=== PATIENT | female | born 1960 | race Caucasian/White ===

== ENCOUNTER 2016-12-13 02:56 | Emergency (ER) | payer MEDICARE ==
--- NOTE | ~2016-12-13 | EKG ---
PATIENT: MONSE SINGH UNIT #: [id number] Ventricular Rate: 84 BPM Atrial Rate: 84 BPM QRS Duration: 112 ms Q-T Interval: 422 ms QTC Calculation(Bezet): 498 ms Calculated R [place]: -71 degrees Calculated T [place]: 100 degrees Diagnosis Line: Accelerated Junctional rhythm with retrograde Diagnosis Line: conduction Diagnosis Line: Left anterior fascicular block Diagnosis Line: Cannot rule out Inferior infarct (masked by Diagnosis Line: fascicular block?) , age undetermined Diagnosis Line: Anterolateral infarct , age undetermined T wave Diagnosis Line: abnormality, consider anterolateral ischemia Diagnosis Line: Abnormal ECG Diagnosis Line: No previous ECGs available Diagnosis Line: Confirmed by ANAMARIA MATTSON MD ([id number]) on 12/13/2016 Diagnosis Line: 4:11:12 PM INTERPRETING MD: TWILA ROSA
--- NOTE | ~2016-12-13 | CR72 ---
[facility] A Service of [facility] RADIOLOGY TEXT RESULTS PATIENT: MONSE SINGH LOCATION: [facility] : 58 UNIT #: [id number] AGE: [address]: Ginny Kwan APRN SEX: F ORDER DR: [id number] [facility] [address] [place], [place] [address] [id number] E MR#: [id number] Acc #: [id number] NAME: MONSE SINGH : 1960 SEX: F STUDY DATE/TIME: 12/13/2016 2:40 UNIT: [facility] ROOM: STUDY DESCRIPTION: CR Chest Single View Portable Attending Physician: Ginny Kwan A.P.R.N. Ordering Physician: Ginny Kwan A.P.R.N. Primary Care Physician: Mello Dao MEDICAL IMAGING REPORT This report is preliminary unless electronic signature is present EXAM Portable chest HISTORY Irregular heartbeat, chest pain, shortness of air onset yesterday. COMPARISON 05/19/2016 FINDINGS Portable view of the chest demonstrates a cardiomegaly without failure. Evidence of diffuse lung disease with a fine reticulonodular pattern suggesting underlying interstitial disease and fibrosis. No acute airspace disease or consolidation. No effusions. Mediastinal calcifications suggest old granulomatous disease. No pneumothorax. Dictated by... [place] Christina M.D. THIS IS AN ELECTRONICALLY VERIFIED REPORT [place] Christina M.D. at 12/13/2016 5:56 AM RACHEL/kourtney TD: 12/13/2016 04:33 JOB #: [id number] MEDICAL IMAGING REPORT Page 1 of 1 COPY
[2016-12-13 02:33] LABS: BASOPHIL% 0.6 % (0-2.5); EOSINOPHIL# 0.2 X10e3 (0-0.7); HEMATOCRIT 35.4 % (35.0-45.0); HEMOGLOBIN 11.3 gm/dL (12.0-16.0); LYMPHOCYTE# 0.3 X10e3 (1.0-3.5); LYMPHOCYTE% 6.2 % (17.0-45.0); MEAN CELL VOLUME 90.5 FL (83-96); MEAN CORPUSCULAR HEMOGLOBIN 28.9 PG (28-34); MEAN PLATELET VOLUME 8.6 FL (6.5-11.5); MONOCYTE# 0.4 X10e3 (0-1.0); NEUTROPHIL# 4.2 X10e3 (1.5-7.1); NEUTROPHIL% 82.2 % (40-75); PLATELET COUNT 212 X10e3 (140-420); RED BLOOD COUNT 3.91 X10e (3.90-5.30); RED CELL DISTRIBUTION WIDTH 15.8 % (11.0-15.5); WHITE BLOOD COUNT 5.1 X10e3 (4.0-10.5)
[2016-12-13 02:34] LABS: DIFF IND NO
[2016-12-13 02:55] LABS: INR 1.1; PARTIAL THROMBOPLASTIN TIME 24.4 SECONDS (23.5-31.3); PROTHROMBIN TIME (PATIENT) 11.5 SECONDS (9.6-11.5)
[~2016-12-13 02:56] MED LIST: ALENDRONATE SOD70 MG PO; ASPIRIN EC81 M1 PO; ASPIRIN PO; ASPIRIN81 MG PO; ATORVASTATIN CA80 MG PO; BACTRIM DS TABL1 TA2 PO; BAYER ASPIRIN325 M1 PO; BAYER CHEWABLE81 MG PO; BP MED; BUMEX2 MG PO; BYSTOLIC10 MG PO; CALCIUM CARBON600 M1 PO; CATAPRES-TTS-20.2 M1 PO; CERTAGEN PO; CLONIDINE PO; DILTIAZEM 24HR240 MG PO; EFFEXOR75 M2 PO; FEOSOL PO; HUMALOG100 U/ML SUBQ; HYDRALAZINE HC100 MG PO; HYDRALAZINE HCL50 MG PO; INSULIN SUBQ; IRON325 ( 651 PO; IRON325 ( 652 PO; ISOSORBIDE DINI30 MG PO; LANTUS100 U/ML SQ; LANTUS100 U/ML SUBQ; LASIX PO; LEVAQUIN PO; LEXAPRO PO; LIPITOR PO; LIPITOR80 MG PO; LISINOPRIL PO; LISINOPRIL5 MG PO; LOPRESSOR PO; LORTAB 10-5001 EACH PO; LORTAB 5-325 M1 EACH PO; LOSARTAN POTASS50 MG PO; METFORMIN PO; MINOXIDIL2.5 MG PO; MULTI VITAMIN1 EACH PO; MULTI-DAY1 TAB PO; NORVASC PO; NOVOLOG100 U/M2 SUBQ; NOVOLOG100 U/ML SUBQ; PLAVIX PO; TRAZODONE HCL150 MG PO; TRIAMTERENE-HC1 EACH PO; VISTARIL50 MG PO; VITAMIN D; ZYVOX PO; [UNRECOGNIZED DRUG - OTHER]; [UNRECOGNIZED DRUG - OTHER] PO
[2016-12-13 03:01] LABS: ALBUMIN SERUM 3.5 g/dL (3.5-5.0); BILIRUBIN, DIRECT 0.1 mg/dL (0.0-0.2); BILIRUBIN,INDIRECT 0.3 mg/dL (0.0-0.9); BILIRUBIN,TOTAL 0.4 mg/dL (0.2-2.0); BUN/CREATININE RATIO 7.14; CALCIUM SERUM 9.1 mg/dL (8.4-10.2); CREATININE SERUM 2.1 mg/dL (0.6-1.4); GLOM FILT RATE Estimated 25.5 mL/min (>60); POTASSIUM 3.4 mmol/L (3.5-5.1); PROTEIN TOTAL SERUM 6.7 g/dL (6.0-8.3)
[2016-12-13 03:56] LABS: POC - CKMB <1.0 ng/mL (0.0-7.9); POC - TROPONIN <0.05 ng/mL (<=0.05)
[2016-12-13 04:22] LABS: POC - CKMB <1.0 ng/mL (0.0-7.9); POC - TROPONIN <0.05 ng/mL (<=0.05)
== END 2016-12-13 04:56 | disposition home or self-care (01) ==
LOC: CED 02:56
PROVIDERS: Nurse Practitioner
DX: R00.2 Palpitations (principal); I12.0 Hypertensive chronic kidney disease with stage 5 chronic kidney disease or end stage renal disease; E11.22 Type 2 diabetes mellitus with diabetic chronic kidney disease; N18.6 End stage renal disease; E78.5 Hyperlipidemia, unspecified; Z99.2 Dependence on renal dialysis; Z95.5 Presence of coronary angioplasty implant and graft; E66.9 Obesity, unspecified; Z68.42 Body mass index [BMI] 45.0-49.9, adult; Z88.8 Allergy status to other drugs, medicaments and biological substances; Z79.899 Other long term (current) drug therapy; Z79.82 Long term (current) use of aspirin; Z79.4 Long term (current) use of insulin
CPT/HCPCS: 36415; 71010; 80048; 80076; 82150; 82553; 83690; 83735; 83880; 84484; 85025; 85610; 85730; 93005; 99283

== ENCOUNTER 2017-02-07 09:46 | Emergency (ER) | payer MEDICARE | END 2017-02-07 11:32 | disposition left against medical advice (07) | LOC: CED 09:46 | DX: Z53.21 Procedure and treatment not carried out due to patient leaving prior to being seen by health care provider (principal) ==

== ENCOUNTER 2017-02-15 19:54 | Emergency (ER) | payer MEDICARE ==
--- NOTE | ~2017-02-15 | CR211 ---
[facility] A Service of [facility] RADIOLOGY TEXT RESULTS PATIENT: MONSE SINGH LOCATION: [facility] : 58 UNIT #: [id number] AGE: [address]: Oliver Boyd MD SEX: F ORDER DR: [id number] [facility] [address] [place], [place] [address] [id number] E MR#: [id number] Acc #: [id number] NAME: MONSE SINGH : 1960 SEX: F STUDY DATE/TIME: 02/15/2017 22:45 UNIT: [facility] ROOM: STUDY DESCRIPTION: CR Ribs Uni 2 View W PA Ch Rt Attending Physician: Oliver Boyd M.D. Ordering Physician: Oliver Boyd M.D. Primary Care Physician: Mello Dao MEDICAL IMAGING REPORT This report is preliminary unless electronic signature is present EXAM Right rib series with PA chest HISTORY Shortness of air with activity, painful breathing since 02/14/17. The patient from bed on that day. FINDINGS A PA view of the chest and oblique views of the right ribs were obtained. The study is limited by patient's size. No rib fractures are visible. The heart size is normal and the lungs are clear. IMPRESSION 1. The study is limited by patient's size. There is no active disease and no rib fractures are visible. Dictated by... Veto Giles M.D. THIS IS AN ELECTRONICALLY VERIFIED REPORT Veto Giles M.D. at 02/16/2017 1:43 PM GARRISON/saturnino TD: 02/16/2017 12:57 JOB #: [id number] MEDICAL IMAGING REPORT Page 1 of 1 COPY
== END 2017-02-16 00:03 | disposition home or self-care (01) ==
LOC: CED 19:54
DX: S20.211A Contusion of right front wall of thorax, initial encounter (principal); I50.9 Heart failure, unspecified; N18.9 Chronic kidney disease, unspecified; I25.10 Atherosclerotic heart disease of native coronary artery without angina pectoris; E11.9 Type 2 diabetes mellitus without complications; Z79.899 Other long term (current) drug therapy; Z88.8 Allergy status to other drugs, medicaments and biological substances; Z79.4 Long term (current) use of insulin; W06.XXXA Fall from bed, initial encounter
CPT/HCPCS: 71101; 99284

== ENCOUNTER 2017-02-28 22:30 | Emergency (ER) | payer MEDICARE ==
[~2017-02-28] VITALS: Ht 160 cm; Wt 120.2 kg
--- NOTE | ~2017-02-28 | EKG ---
PATIENT: MONSE SINGH UNIT #: [id number] Ventricular Rate: 86 BPM Atrial Rate: 44 BPM QRS Duration: 120 ms Q-T Interval: 430 ms QTC Calculation(Bezet): 514 ms Calculated R [place]: -54 degrees Calculated T [place]: 100 degrees Diagnosis Line: Wide QRS rhythm Accelerated Junctional rhythm Diagnosis Line: Right bundle branch block Diagnosis Line: Left anterior fascicular block Diagnosis Line: Bifascicular block Diagnosis Line: Cannot rule out Inferior infarct (masked by Diagnosis Line: fascicular block?) , age undetermined Diagnosis Line: Possible Anterolateral infarct , age undetermined Diagnosis Line: Abnormal ECG Diagnosis Line: Diagnosis Line: Confirmed by RAYNA ALVARADO MD ([id number]) on Diagnosis Line: 03/02/2017 5:02:43 PM INTERPRETING MD: JENNY ROSA
[2017-03-01 01:06] LABS: BASOPHIL% 0.7 % (0-2.5); EOSINOPHIL# 0.1 X10e3 (0-0.7); EOSINOPHIL% 2.4 % (0.0-7.0); HEMATOCRIT 35.9 % (35.0-45.0); HEMOGLOBIN 11.5 gm/dL (12.0-16.0); LYMPHOCYTE# 0.3 X10e3 (1.0-3.5); MEAN CELL VOLUME 92.2 FL (83-96); MEAN CORPUSCULAR HEMOGLOBIN 29.6 PG (28-34); MEAN CORPUSCULAR HGB CONC 32.1 g/dL (30-36); MEAN PLATELET VOLUME 8.3 FL (6.5-11.5); MONOCYTE# 0.3 X10e3 (0-1.0); MONOCYTE% 7.1 % (3.0-12.0); NEUTROPHIL# 3.9 X10e3 (1.5-7.1); NEUTROPHIL% 82.8 % (40-75); PLATELET COUNT 302 X10e3 (140-420); RED BLOOD COUNT 3.89 X10e (3.90-5.30); RED CELL DISTRIBUTION WIDTH 18.1 % (11.0-15.5); WHITE BLOOD COUNT 4.8 X10e3 (4.0-10.5)
[2017-03-01 01:12] LABS: DIFF IND NO
[2017-03-01 01:27] LABS: ALBUMIN SERUM 3.6 g/dL (3.5-5.0); BILIRUBIN, DIRECT 0.2 mg/dL (0.0-0.2); BILIRUBIN,INDIRECT 0.7 mg/dL (0.0-0.9); BILIRUBIN,TOTAL 0.9 mg/dL (0.2-2.0); BUN/CREATININE RATIO 8.92; CALCIUM SERUM 8.8 mg/dL (8.4-10.2); CREATININE SERUM 2.8 mg/dL (0.6-1.4); PROTEIN TOTAL SERUM 7.1 g/dL (6.0-8.3)
[2017-03-01 01:29] LABS: POTASSIUM 2.6 mmol/L (3.5-5.1)
[2017-03-01 03:02] LABS: POC - CKMB 1.6 ng/mL (0.0-7.9); POC - TROPONIN <0.05 ng/mL (<=0.05)
== END 2017-03-01 04:10 | disposition home or self-care (01) ==
LOC: CED 22:30
PROVIDERS: Physician Assistant
DX: K21.9 Gastro-esophageal reflux disease without esophagitis (principal); I50.9 Heart failure, unspecified; N18.6 End stage renal disease; Z88.8 Allergy status to other drugs, medicaments and biological substances
CPT/HCPCS: 36415; 80048; 80076; 82150; 82553; 83690; 83735; 84484; 85025; 93005; 96374; 99284; J2405

== ENCOUNTER 2017-03-28 07:14 | Emergency (ER) | payer MEDICARE ==
[~2017-03-28] VITALS: Ht 160 cm; Wt 120.2 kg
--- NOTE | ~2017-03-28 | CR252 ---
[facility] A Service of [facility] RADIOLOGY TEXT RESULTS PATIENT: MONSE SINGH LOCATION: [facility] : 58 UNIT #: [id number] AGE: [address]: Pamela Rose APRN SEX: F ORDER DR: [id number] [facility] [address] [place], [place] [address] [id number] E MR#: [id number] Acc #: [id number] NAME: MONSE SINGH : 1960 SEX: F STUDY DATE/TIME: 03/28/2017 8:23 UNIT: [facility] ROOM: STUDY DESCRIPTION: CR Tibia and Fibula 2 Views Lt Attending Physician: Pamela Rose A.P.R.N. Ordering Physician: Ed Doctor [id number] [facility] Primary Care Physician: Mello Dao MEDICAL IMAGING REPORT This report is preliminary unless electronic signature is present EXAM Left tibia and fibula HISTORY Pain after recent fall. Pain radiating down leg for 3-4 months. FINDINGS AP and lateral views of the tibia and fibula were obtained. No fracture is visible. The bones appear normal. IMPRESSION Normal left tibia and fibula. Dictated by... Veto Giles M.D. THIS IS AN ELECTRONICALLY VERIFIED REPORT Veto Giles M.D. at 03/28/2017 12:12 PM Rosario TD: 03/28/2017 11:24 JOB #: [id number] MEDICAL IMAGING REPORT Page 1 of 1 COPY
--- NOTE | ~2017-03-28 | US85 ---
[facility] A Service of [facility] RADIOLOGY TEXT RESULTS PATIENT: MONSE SINGH LOCATION: [facility] : 58 UNIT #: [id number] AGE: [address]: Pamela Rose APRN SEX: F ORDER DR: [id number] [facility] [address] [place], [place] [address] [id number] E MR#: [id number] Acc #: [id number] NAME: MONSE SINGH : 1960 SEX: F STUDY DATE/TIME: 03/28/2017 9:13 UNIT: [facility] ROOM: STUDY DESCRIPTION: [facility] Attending Physician: Pamela Rose A.P.R.N. Ordering Physician: Ed Doctor [id number] [facility] Primary Care Physician: Mello Dao MEDICAL IMAGING REPORT This report is preliminary unless electronic signature is present EXAM Left lower extremity venous ultrasound HISTORY Left lower extremity pain for months. TECHNIQUE Venous ultrasound examination of the left lower extremity was performed using grayscale, spectral Doppler and color flow Doppler imaging. FINDINGS The examination is negative. There is no evidence of left lower extremity deep venous thrombus from the groin to the lower calf. Visualized greater saphenous vein is also patent. IMPRESSION Negative examination. No evidence of left lower extremity deep venous thrombosis. Dictated by... Veto Giles M.D. THIS IS AN ELECTRONICALLY VERIFIED REPORT Veto Giles M.D. at 03/28/2017 12:13 PM GARRISON/neema TD: 03/28/2017 12:01 JOB #: [id number] [facility] A Service of [facility] RADIOLOGY TEXT RESULTS PATIENT: MONSE SINGH LOCATION: [facility] : 58 UNIT #: [id number] AGE: [address]: Pamela Rose APRN SEX: F ORDER DR: MEDICAL IMAGING REPORT Page 1 of 1 COPY
== END 2017-03-28 10:30 | disposition home or self-care (01) ==
LOC: CED 07:14
DX: M79.662 Pain in left lower leg (principal); G89.29 Other chronic pain; I11.0 Hypertensive heart disease with heart failure; I50.9 Heart failure, unspecified; E11.9 Type 2 diabetes mellitus without complications; Z88.8 Allergy status to other drugs, medicaments and biological substances
CPT/HCPCS: 73590; 93971; 99284